=== PATIENT | male | born 1970 | race Hispanic/Latino ===

== ENCOUNTER → 2022-06-12 | Day surgery (SDC) | payer MEDICARE, OTHER ==
[~2022-06-12] MED LIST: ACETAMINOPHEN 1000 MG/100 ML 100 ML IV ONE; AMLODIPINE BESYL5 MG PO; ATIVAN1 MG PO; BUPIVACAINE 0.5%/EPI 30 ML SDV INJ ONE; BUPIVACAINE HCL 0.5% INJ 30 ML VIAL INJ ONE; CEFTRIAXONE 1 GM VIAL ONE; CELEBREX200 MG PO; DEXAMETHASONE SOD PHOS INJ 4 MG/ML SDV ONE; FENTANYL CITRATE/PF 100MCG/2 ML INJ ONE; HYDROCODONE/APAP 7.5MG-325MG 1 EA TAB ONE; KETOROLAC TROMETHAMINE 30 MG/ML VIAL ONE; LIDOCAINE HCL 1% 30ML-PF VIAL ONE; LIDOCAINE HCL 2% LOCAL INJ 5 ML SDV VIAL INJ ONE; LIDOCAINE JELLY 2% 10ML URO-JET ONE; LORAZEPAM INJ 2 MG/ML VIAL IV ONE; MAXALT10 MG PO; MIDAZOLAM HCL 2 MG/2 ML VIAL ONE; OMEPRAZOLE40 MG PO; ONDANSETRON HCL INJ 2MG/ML 2ML 2 MG/ML VIAL ONE; POVIDONE IODINE 0.05% 0.05 % ML PO ONE; PROPOFOL IV EMULSION 10 MG/ML 20 ML VIAL ONE; SEVOFLURANE INHAL SOLN 250 ML PEN BTL ONE; VITAMIN D3 COM1 EACH PO
[2022-06-12 16:00] VITALS: BP 135/86
== END | disposition home or self-care (01) ==
LOC: OR 10:19 → EDBD 12:30
PROVIDERS: ATTEND Surgery
DX: K60.4 Rectal fistula (principal); K66.8 Other specified disorders of peritoneum; I10 Essential (primary) hypertension; K21.9 Gastro-esophageal reflux disease without esophagitis; F41.9 Anxiety disorder, unspecified; Z79.899 Other long term (current) drug therapy
CPT/HCPCS: 46270; 88304; J0131; J0696; J1100; J1885; J2001; J2250; J2405; J2704; J3010

== ENCOUNTER 2023-12-29 09:23 | Emergency (ER) | payer MEDICARE, OTHER ==
[~2023-12-29] VITALS: Ht 190.5 cm; Wt 99.8 kg
[~2023-12-29 09:23] MED LIST changes: -ACETAMINOPHEN 1000 MG/100 ML 100 ML IV ONE; -BUPIVACAINE 0.5%/EPI 30 ML SDV INJ ONE; -BUPIVACAINE HCL 0.5% INJ 30 ML VIAL INJ ONE; -CEFTRIAXONE 1 GM VIAL ONE; -DEXAMETHASONE SOD PHOS INJ 4 MG/ML SDV ONE; -FENTANYL CITRATE/PF 100MCG/2 ML INJ ONE; -HYDROCODONE/APAP 7.5MG-325MG 1 EA TAB ONE; -KETOROLAC TROMETHAMINE 30 MG/ML VIAL ONE; -LIDOCAINE HCL 1% 30ML-PF VIAL ONE; -LIDOCAINE HCL 2% LOCAL INJ 5 ML SDV VIAL INJ ONE; -LIDOCAINE JELLY 2% 10ML URO-JET ONE; -LORAZEPAM INJ 2 MG/ML VIAL IV ONE; -MIDAZOLAM HCL 2 MG/2 ML VIAL ONE; -ONDANSETRON HCL INJ 2MG/ML 2ML 2 MG/ML VIAL ONE; -POVIDONE IODINE 0.05% 0.05 % ML PO ONE; -PROPOFOL IV EMULSION 10 MG/ML 20 ML VIAL ONE; -SEVOFLURANE INHAL SOLN 250 ML PEN BTL ONE
[2023-12-29 09:37] VITALS: TEMP 98.2
[2023-12-29] MEDS: ONDANSETRON HCL 4 MG ORAL DISINTEGRATING TAB PO ONE (10:50)
[2023-12-29] MEDS: Morphine 4mg INJECTION 4 MG/ML INJ IM ONE (10:50)
[2023-12-29] MEDS: LIDOCAINE 1% W/EPINEPHRINE 20 ML VIAL INJ ONE (10:51)
[2023-12-29 11:15] VITALS: PULSE 68; RESP 18; O2SAT 96
[2023-12-29] MEDS ORDERED: BACTRIM DS TAB1 EACH PO (11:57)
[2023-12-29] MEDS ORDERED: ULTRAM 50MG50 MG PO ×2 (11:57→11:59)
== END 2023-12-29 14:44 | disposition home or self-care (01) ==
LOC: ER 10:01
DX: L02.214 Cutaneous abscess of groin (principal); I10 Essential (primary) hypertension; K21.9 Gastro-esophageal reflux disease without esophagitis
CPT/HCPCS: 10061; 99283; J2270; Q0162